=== PATIENT | female | born 1980 | race Caucasian/White ===

== ENCOUNTER 2020-05-06 16:14 | Outpatient (RCR) | payer BC, SELFPAY | END 2020-08-02 23:59 | disposition home or self-care (01) | LOC: ANHLAB 16:14 | PROVIDERS: PCP Family Medicine; Visit Provider Obstetrics & Gynecology | DX: O20.0 Threatened abortion (principal); Z3A.00 Weeks of gestation of pregnancy not specified | CPT/HCPCS: 36415; 84702 ==